=== PATIENT | male | born 1970 | race Caucasian/White ===

== ENCOUNTER 2018-09-14 20:53 | Observation (INO) | payer OTHER ==
[~2018-09-14] VITALS: Ht 188 cm; Wt 158.8 kg
[2018-09-14] MEDS ORDERED: ASPIRIN 81 MG CHEW TAB PO ONE ×2 (21:00→22:15)
[2018-09-14] MEDS ORDERED: ADENOSINE 6 MG/2 ML VIAL IV ONE (21:00)
--- NOTE | 2018-09-14 21:09 | NUR ---
PT TO ER 1. PLACED ON MAORI PHYSIOTHERAPIST. DEFIB PAD APPLIED. ER MD TO BEDSIDE.
[2018-09-14] MEDS ORDERED: METOPROLOL TARTRATE INJ 1 MG/ML VIAL IV ONE (21:15)
[2018-09-14 21:18] LABS: BASOPHILS # (AUTO) 0.1 (0.0-0.1); BASOPHILS % 0.4 % (0.0-1.0); EOSINOPHILS # (AUTO) 0.1 (0.0-0.4); EOSINOPHILS % 1.2 % (0.0-6.0); HEMATOCRIT 48.4 % (38.2-49.6); HEMOGLOBIN 16.8 g/dL (14.0-18.0); LYMPHOCYTES # (AUTO) 3.9 (1.0-3.2); LYMPHOCYTES % 34.5 % (18.0-39.1); MEAN CORPUSCULAR HEMOGLOBIN 30.1 pg (28-32); MEAN CORPUSCULAR HGB CONC 34.7 g/dL (31-35); MEAN CORPUSCULAR VOLUME 86.6 fL (81-99); MONOCYTES # (AUTO) 1.2 (0.2-0.8); MONOCYTES % 10.3 % (4.4-11.3); NEUTROPHILS % 52.9 % (38.7-80.0); PLATELET COUNT 301 x10e3/uL (140-360); RED BLOOD COUNT 5.59 x10e6/uL (4.3-5.7); RED CELL DISTRIBUTION WIDTH 12.6 % (11.7-14.4)
[2018-09-14 21:36] LABS: ALANINE AMINOTRANSFERASE 46 IU/L (0-55); ALBUMIN 3.9 g/dL (3.5-5.0); ALBUMIN/GLOBULIN RATIO 1.1 (0.8-2.0); ALKALINE PHOSPHATASE 85 IU/L (40-150); ANION GAP 14.8 mmol/L (8-16); BLOOD UREA NITROGEN 16 mg/dL (7-26); BUN/CREATININE RATIO 16 (6-25); CALCIUM 10.4 mg/dL (8.4-10.2); CARBON DIOXIDE 26 mmol/L (22-29); CHLORIDE 105 mmol/L (98-107); CREATINE KINASE 90 IU/L (30-200); CREATININE, SERUM 0.97 mg/dL (0.72-1.25); EST GLOMERULAR FILTRATION RATE > 60 ML/MIN (60-); GLUCOSE 117 mg/dL (74-118); POTASSIUM 3.8 mmol/L (3.5-5.1); SODIUM 142 mmol/L (136-145)
--- NOTE | 2018-09-14 21:39 | Diagnostic Imaging Report ---
Examination: Single AP view of the chest. COMPARISON: None. INDICATION: Chest pain DISCUSSION: Lines/tubes: None. Lungs: The lungs are well inflated and clear. No pneumonia or pulmonary edema. Pleura: No pleural effusion or pneumothorax. Heart and mediastinum: The heart and the mediastinum are unremarkable. Bones and soft tissues: No acute bony abnormalities. IMPRESSION: 1. No acute cardiopulmonary abnormalities. Signed by: Dr. Severiano Srinivasan M.D. on 09/14/2018 9:36 PM
--- OUTSIDE RECORDS SUMMARY | 2018-09-14 22:16 | XMS REPORT ---
Author Author [facility] Address Unknown Phone Unavailable Care Team Providers Care Research Program Assistant Name Role Phone Laurie BARAJAS Unavailable Unavailable Problems This patient has no known problems. Allergies, Adverse Reactions, Alerts This patient has no known allergies or adverse reactions. Medications This patient has no known medications. Results Test Description Test Time Test Comments Text Results Atomic Results Result Comments CHEST SINGLE (PORTABLE) 2018-09-14 21:36:00 [place] [address] Patient Name: HARDIK ZAIDI MR #: [id number] : 1970 Age/Sex: 47/M Req #: [id number] Adm Physician: Ordered by: SANFORD BARAJAS MD Report #: [id number] Location: ER Room/Bed: Procedure: [id number] DX/CHEST SINGLE (PORTABLE) Exam Date: 09/14/18 Exam Time: 2120 REPORT STATUS: Signed Examination: Single AP view of the chest. COMPARISON: None. INDICATION: Chest pain DISCUSSION: Lines/tubes: None. Lungs: The lungs are well inflated and clear. No pneumonia or pulmonary edema. Pleura: No pleural effusion or pneumothorax. Heart and mediastinum: The heart and the mediastinum are unremarkable. Bones and soft tissues: No acute bony abnormalities. IMPRESSION: 1. No acute cardiopulmonary abnormalities. Signed by: Dr. Rene Bloom M.D. on 09/14/2018 9:36 PM Dictated By: RENE BLOOM MD 35 Transcribed By: KENNETH on 09/14/182135 COPY TO: SANFORD BARAJAS MD
[2018-09-14] MEDS: METOPROLOL TARTRATE 25 MG TAB PO SCH (22:19)
--- NOTE | 2018-09-14 23:15 | NUR ---
Pt received from ER. Pt A&O and in no apparent distress. Pt at bedside. Pt has no complaints of pain. All safety measures ensured and pt call tyler near.
[2018-09-14 23:20] VITALS: BP 124/66
[2018-09-15 04:00] VITALS: BP 137/78
--- NOTE | 2018-09-15 06:28 | NUR ---
Call put into Dr. Barton re: consult
--- NOTE | 2018-09-15 06:50 | NUR ---
rounded with caustic cresylate shift superintendent nurse, patient resting in bed and in no distress. call tyler within reach and bed in lowest position.
[2018-09-15 07:20] VITALS: BP 145/81
[2018-09-15] MEDS ORDERED: SODIUM CHLORIDE 0.9% 1000ML 1,000 ML IV SCH (08:30)
[2018-09-15] MEDS ORDERED: ACETAMINOPHEN 325 MG TAB PO PRN (08:30)
[2018-09-15] MEDS ORDERED: ONDANSETRON HCL INJ 2MG/ML 2ML 2 MG/ML VIAL IV PRN (08:30)
[2018-09-15] MEDS ORDERED: FAMOTIDINE20 MG PO (08:30)
[2018-09-15] MEDS ORDERED: LOPRESSOR25 MG PO (08:30)
[2018-09-15] MEDS ORDERED: REGLAN10 MG PO (08:30)
[2018-09-15 08:31] LABS: BASOPHILS % 0.5 % (0.0-1.0); EOSINOPHILS # (AUTO) 0.1 (0.0-0.4); EOSINOPHILS % 1.7 % (0.0-6.0); HEMATOCRIT 45.1 % (38.2-49.6); HEMOGLOBIN 15.4 g/dL (14.0-18.0); LYMPHOCYTES # (AUTO) 2.3 (1.0-3.2); LYMPHOCYTES % 29.6 % (18.0-39.1); MEAN CORPUSCULAR HEMOGLOBIN 29.8 pg (28-32); MEAN CORPUSCULAR HGB CONC 34.1 g/dL (31-35); MEAN CORPUSCULAR VOLUME 87.4 fL (81-99); MONOCYTES # (AUTO) 0.7 (0.2-0.8); MONOCYTES % 9.7 % (4.4-11.3); NEUTROPHILS # (AUTO) 4.4 (2.1-6.9); PLATELET COUNT 228 x10e3/uL (140-360); RED BLOOD COUNT 5.16 x10e6/uL (4.3-5.7); RED CELL DISTRIBUTION WIDTH 12.6 % (11.7-14.4)
[2018-09-15 08:36] VITALS: BP 145/81
[2018-09-15 08:54] LABS: ANION GAP 10.9 mmol/L (8-16); BLOOD UREA NITROGEN 16 mg/dL (7-26); BUN/CREATININE RATIO 19 (6-25); CALCIUM 9.2 mg/dL (8.4-10.2); CARBON DIOXIDE 26 mmol/L (22-29); CHLORIDE 103 mmol/L (98-107); CHOL/HDL RATIO 4.1 (3.9-4.7); CHOLESTEROL 144 MD/DL (0-199); CREATININE, SERUM 0.83 mg/dL (0.72-1.25); EST GLOMERULAR FILTRATION RATE > 60 ML/MIN (60-); GLUCOSE 152 mg/dL (74-118); HDL CHOLESTEROL 35 MG/DL (40-60); LDL CHOLESTEROL 81 MG/DL (60-130); MAGNESIUM 2.1 MG/DL (1.3-2.1); POTASSIUM 3.9 mmol/L (3.5-5.1); SODIUM 136 mmol/L (136-145); TRIGLYCERIDES 138 MG/DL (0-149)
[2018-09-15 09:00] LABS: B-TYPE NATRIURETIC PEPTIDE2 36.1 pg/mL (0-100)
[2018-09-15] MEDS ORDERED: ASPIRIN 81 MG ENTERIC COATED PO SCH (09:00)
[2018-09-15 09:15] LABS: FREE T4 (FREE THYROXINE) 0.93 ng/dL (0.9-1.8); THYROID STIMULATING HORMONE 1.303 uIU/mL (0.350-4.940)
[2018-09-15] MEDS: METOPROLOL TARTRATE 25 MG TAB PO SCH (09:18)
[2018-09-15 10:48] LABS: CREATINE KINASE MB 1.5 ng/mL (0-5.0)
[2018-09-15 11:13] VITALS: BP 110/64
[2018-09-15] MEDS ORDERED: ONDANSETRON HCL 4 MG ORAL DISINTEGRATING TAB PO PRN (13:45)
--- NOTE | 2018-09-15 15:00 | NUR ---
patient alert and oriented with at the bedside. discharge instructions given at this time, patient verbalized understanding. IV discontinued, catheter in tact and small dressing applied. patient refused wheelchair assistance and will be escorted from unit to personal auto for patient's to drive home.
[2018-09-15] MEDS ORDERED: FAMOTIDINE 20 MG TAB PO SCH (16:30)
--- NOTE | 2018-09-15 22:31 | Consultation ---
DATE OF CONSULTATION: Cardiology Consultation REASON FOR CONSULTATION: Supraventricular tachycardia. HISTORY OF PRESENT ILLNESS: This is a 47-year-old man with a history of gastroesophageal reflux disease, obstructive sleep apnea, not on CPAP, and obesity, who presented to the emergency department with sudden onset of chest discomfort. The patient states that at 8:00 p.m., while picking up food at a restaurant, he suddenly felt central chest pressure with elevated heart rates and palpitations, which radiated into the neck. Symptoms persisted despite going home and relaxing. Upon arrival here, he was noted to be in supraventricular tachycardia, received adenosine with proper faith and normal sinus rhythm. REVIEW OF SYSTEMS: A 12-point review of system was conducted and is negative, otherwise as stated above in the HPI. PAST MEDICAL HISTORY: As stated above in the HPI. PAST SURGICAL HISTORY: Back surgery. PAST FAMILY HISTORY: No premature coronary artery disease or sudden cardiac . SOCIAL HISTORY: No illicit drug, alcohol, or tobacco use. ALLERGIES: NO KNOWN DRUG ALLERGIES. MEDICATIONS: See medications reconciliation form. PHYSICAL EXAMINATION: VITAL SIGNS: He is afebrile, heart rate is 63, respirations are 18, blood pressure is 110/64, and oxygen saturation 97% on room air. GENERAL: Well appearing, well built, no apparent distress. Alert and oriented x3. HEAD: Normocephalic and atraumatic. EYES: The extraocular muscles are intact. Conjunctivae clear. NECK: No JVD. No bruits. CARDIOVASCULAR: Regular rate and rhythm. No murmurs. LUNGS: Clear to auscultation bilaterally. No wheezing or rales. ABDOMEN: Soft, nontender, and nondistended. Normoactive bowel sounds. EXTREMITIES: No clubbing, cyanosis, or edema. VASCULAR: 2+ pulses. SKIN: Warm, dry, and intact. NEUROLOGIC: No focal deficits noted. Cranial nerves grossly intact. PSYCHIATRIC: Normal mood and affect. LABORATORY DATA: Reviewed. Hemoglobin is 15. Potassium 3.9 and creatinine 0.83. Troponins negative x2. BNP 36. TSH is normal. Magnesium is 2.1. A 12-lead electrocardiogram: 1. Showed supraventricular tachycardia. 2. Showed normal sinus rhythm. Echocardiogram showed preserved left ventricular systolic function. IMPRESSION: 1. Supraventricular tachycardia. 2. Chest pain. 3. Obesity. 4. Obstructive sleep apnea. RECOMMENDATIONS: This patient had prompt faith and normal sinus rhythm with adenosine. His arrhythmias likely related to his untreated obstructive sleep apnea. All laboratory values were within normal limits. Troponins were within normal limits. Echocardiogram showed preserved ventricular systolic function. Discussed diet and exercise for weight loss. Also discussed the need for followup for outpatient sleep study. The patient may be discharged from a cardiovascular standpoint with outpatient management. Continue metoprolol for rate and rhythm control. Zia Williamson DO BM/MODL /[id number]
--- NOTE | 2018-09-16 20:28 | Discharge Summary ---
ADMISSION DIAGNOSES: Chest pain, supraventricular tachycardia with a rate of 195, morbid obesity, and hypercalcemia. DISCHARGE DIAGNOSES: Chest pain, supraventricular tachycardia with a rate of 195, morbid obesity, and hypercalcemia, rule out acute coronary syndrome. HISTORY: The patient has no medical history. SURGICAL HISTORY: L6-L7 diskectomy. FAMILY HISTORY: The patient's son has cancer. SOCIAL HISTORY: The patient admits to occasional alcohol use. HOSPITAL COURSE: A 47-year-old male complains of central substernal chest pain that began yesterday while sitting at a restaurant. The pain radiated to his jaw and bilateral temples. He denies shortness of breath and diaphoresis, but admits to palpitations. The episode lasted about an hour and so he got to the ER and was given adenosine. He denies nausea, vomiting, and diarrhea. On admission, troponins were negative x2. Echo showed an EF of 69%. Lipid panel was within normal limits. EKG showed SVT with a rate of 195. The patient was given adenosine and it resolved. The patient started on metoprolol per Cardiology recommendation. His hypercalcemia of 10.4 was resolved prior to discharge. The patient was seen by Cardiology and cleared for discharge. He will follow up with primary care in 1-2 weeks. He was given a prescription for Pepcid, Reglan, and metoprolol. Vital signs stable. The patient is afebrile. The patient understands discharge instructions and agrees to plan. Dictated by Rosa Ag NP MD AILEEN Chaudhari/ULISES /[id number]
== END 2018-09-15 15:15 | disposition home or self-care (01) ==
LOC: ER 20:53 → ERHOLD 22:13 → IMCU 09-15 01:02
PROVIDERS: ADMIT Internal Medicine; ATTEND Internal Medicine
DX: I47.1 Supraventricular tachycardia (principal); R07.2 Precordial pain; Z82.49 Family history of ischemic heart disease and other diseases of the circulatory system; G47.33 Obstructive sleep apnea (adult) (pediatric); Z68.41 Body mass index [BMI] 40.0-44.9, adult; E66.01 Morbid (severe) obesity due to excess calories; E83.52 Hypercalcemia
CPT/HCPCS: 36415 ×2; 71045; 80048; 80053; 80061; 82550 ×2; 82553 ×2; 83036; 83735; 83880; 84439; 84443; 84484 ×2; 85025 ×2; 93005; 93306; 99284; G0378 ×2; J0153; J7030

== ENCOUNTER → 2019-06-30 | Outpatient (CLI) | payer OTHER ==
[~2019-06-30] MED LIST: BACTRIM DS TAB1 EACH PO; FAMOTIDINE20 MG PO; LOPRESSOR25 MG PO; REGLAN10 MG PO
--- NOTE | 2019-06-30 17:09 | Diagnostic Imaging Report ---
Abdomen, one view on 2 radiographs Clinical indications: Renal stones Comparison: 05/26/2019 Findings/impression: Left double-J ureteral stent is in place. There are no radiographically apparent renal calculi. No acute osseous abnormalities. Nonobstructive bowel gas pattern. Signed by: Jakob Bowman MD on 06/30/2019 5:06 PM
== END ==
LOC: RAD 16:18
PROVIDERS: ATTEND Urology
DX: N20.0 Calculus of kidney (principal)
CPT/HCPCS: 74018

== ENCOUNTER → 2019-07-06 | Day surgery (SDC) | payer OTHER ==
[~2019-07-06] MED LIST changes: +CEFAZOLIN SOD 1 GM/NS 50ML 100 ML IV ONE; +DEXAMETHASONE SOD PHOS INJ 4 MG/ML VIAL ONE; +FENTANYL CITRATE/PF 100MCG/2 ML INJ ONE; +IOPAMIDOL 610MG/1ML 300 MG/ML VIAL IV ONE; +LIDOCAINE HCL 2% LOCAL INJ 5 ML SDV VIAL INJ ONE; +MIDAZOLAM HCL 2 MG/2 ML VIAL ONE; +ONDANSETRON HCL INJ 2MG/ML 2ML 2 MG/ML VIAL ONE; +PROPOFOL IV EMULSION 10 MG/ML 20 ML VIAL ONE; +SEVOFLURANE INHAL SOLN 250 ML PEN BTL ONE
[2019-07-06 13:05] VITALS: BP 134/92
--- NOTE | 2019-07-07 00:27 | Operative Report ---
DATE OF PROCEDURE: 07/06/2019 SURGEON: Addie Diaz MD SERVICE: Urology. PREOPERATIVE DIAGNOSES: 1. History of left distal ureteral stone. 2. Presence of double-J stent on the left side. 3. Microhematuria. 4. Frequency. POSTOPERATIVE DIAGNOSES: 1. History of left distal ureteral stone. 2. Presence of double-J stent on the left side. 3. Microhematuria. 4. Frequency. OPERATION PERFORMED: 1. Cystoscopy and right retrograde pyelogram. This was done for further assessment of the hematuria, not related to the other side. 2. Removal of double-J stent from the left side. 3. Left retrograde pyelogram under fluoroscopic control. 4. Left ureteroscopy. 5. Interpretation of x-ray, radiologist not present. 6. Supervision of fluoroscopy. ACTING TEACHER: None. ANESTHESIA: General. CLINICAL INDICATION NOTE: This is a 48-year-old patient with a distal ureteral calculus on the left side. The stone was fragmented and removed. Double-J stent is in place. He was brought for reassessment of both sides. Procedures were discussed with the patient. Potential benefit and complication discussed, explained, and accepted. DESCRIPTION OF PROCEDURE AND FINDINGS: After the proper level of anesthesia was achieved, the patient was placed in lithotomy position, prepped and draped in a sterile fashion. Urethra inspected was unremarkable, that was patent. Bladder mucosa was normal. Some edema around the left ureteral orifice. Right ureteral orifice was unremarkable. Open-end catheter was inserted to the right side and retrograde pyelogram demonstrating a normal collecting system and ureter. Following this, the left double-J stent was removed. Open-end catheter was inserted. Retrograde pyelogram was done. No definitive lesions were identified. However, plan to assist with ureteroscopy. A wire was kept in place and a flexible ureteroscopy was done. No stones were identified. The scope was removed. Bladder was irrigated. The patient was transferred in satisfactory condition to recovery room. He will be followed as outpatient for further assessment for stone disease. Addie iDaz MD NC/MODL /[id number]
== END | disposition home or self-care (01) ==
LOC: OR 11:07
PROVIDERS: ATTEND Urology
DX: Z46.6 Encounter for fitting and adjustment of urinary device (principal); R31.29 Other microscopic hematuria; R35.0 Frequency of micturition
CPT/HCPCS: 52310; 74420; C1758; C1769; J0690; J1100; J2001; J2250; J2405; J2704; J3010; Q9967